=== PATIENT | male | born 1945 | race Caucasian/White ===

== ENCOUNTER 2016-12-24 06:49 | Emergency (ER) | payer OTHER, BC ==
--- NOTE | 2016-12-24 07:11 | PDOC ---
History of Present Illness - General History Source: Patient Exam Limitations: No Limitations - History of Present Illness Initial Comments: 12/24/16 07:49 The patient is a 71 year old male, with a significant past medical history of anxiety, who presents to the emergency department complaining of anxiety for approximately 1 week. The patient reports he was unable to sleep all of last night and was experiencing body shakes. He reports waking up in the middle of the night and walking around his home. He reports taking Xanax and Ambien prescribed by his PCP Dr. Santo, with no relief. Patient reports Dr. Santo recommended a follow-up with a Psychiatric hospital. He states he has been unable to eat, feels dehydrated, and has lost a lot of weight. In the past, he has had similar episodes where he would not be able to sleep, secondary to passing away and increased stress involved in taking care of his son. He reports visiting a psychiatrist in the past, which did not really help him. Currently he does not report any stressors for his anxiety. The patient denies any suicidal or homicidal ideations. The patient denies any fever, chills, cough , headache, or dizziness. The patient denies any nausea, vomiting, diarrhea, constipation, or changes in urination patterns. The patient denies any chest pain, shortness of breath, diaphoresis, or palpitations. Allergies: None reported. Past Surgical History: None reported. Social History: Non-smoker. Denies alcohol or drug use. PCP: Dr. Santo <Sharmila Rodriguez - Last Filed: 12/24/16 07:49> <Angeli Vitale - Last Filed: 12/24/16 10:53> - General Stated Complaint: ANXIETY Time Seen by Provider: 12/24/16 07:07 Past History <Sharmila Rodriguez - Last Filed: 12/24/16 07:49> <Angeli Vitale - Last Filed: 12/24/16 10:53> - Past Medical History Allergies/Adverse Reactions: Allergies Allergy/AdvReac Type Severity Reaction Status Date / Time No Known Allergies Allergy Verified 12/24/16 07:15 Home Medications: Ambulatory Orders Alprazolam [Xanax] 1 mg PO TID PRN 12/24/16 Zolpidem Tartrate [Ambien] 10 mg PO HS 12/24/16 Review of Systems - Review of Systems Able to Perform ROS?: Yes Comments:: 12/24/16 07:51 GENERAL/CONSTITUTIONAL: +Decreased appetite, +weight loss, +unable to sleep, + body shakes. No fever or chills. HEAD, EYES, EARS, NOSE AND THROAT: No change in vision. No ear pain or discharge. No sore throat. CARDIOVASCULAR: No chest pain or shortness of breath. RESPIRATORY: No cough, wheezing, or hemoptysis. GASTROINTESTINAL: No nausea, vomiting, diarrhea or constipation. GENITOURINARY: No dysuria, frequency, or change in urination. MUSCULOSKELETAL: No joint or muscle swelling or pain. No neck or back pain. SKIN: No rash NEUROLOGIC: No headache, vertigo, loss of consciousness, or change in strength/ sensation. ENDOCRINE: No increased thirst. No abnormal weight change. HEMATOLOGIC/LYMPHATIC: No anemia, easy bleeding, or history of blood clots. ALLERGIC/IMMUNOLOGIC: No hives or skin allergy. PSYCHIATRIC: +Stress, +Anxiety. <Sharmila Rodriguez - Last Filed: 12/24/16 07:49> *Physical Exam - Vital Signs Last Vital Signs Temp Pulse Resp BP Pulse Ox 97.8 F 100 H 20 150/97 97 12/24/16 07:15 12/24/16 07:15 12/24/16 07:15 12/24/16 07:15 12/24/16 07:15 - Physical Exam Comments: 12/24/16 07:52 GENERAL: Awake, alert, and fully oriented, in no acute distress. Thin. Appears frail. HEAD: No signs of trauma EYES: PERRLA, EOMI, sclera anicteric, conjunctiva clear ENT: Auricles normal inspection, hearing grossly normal, nares patent, oropharynx clear without exudates. Dry mucosa NECK: Normal ROM, supple, no lymphadenopathy, JVD, or masses LUNGS: Breath sounds equal, clear to auscultation bilaterally. No wheezes, and no crackles HEART: Regular rate and rhythm, normal S1 and S2, no murmurs, rubs or gallops ABDOMEN: Soft, nontender, normoactive bowel sounds. No guarding, no rebound. No masses EXTREMITIES: Normal range of motion, no edema. No clubbing or cyanosis. No cords, erythema, or tenderness NEUROLOGICAL: Cranial nerves II through XII grossly intact. Normal speech, normal gait SKIN: Warm, Dry, normal turgor, no rashes or lesions noted. <Sharmila Rodriguez - Last Filed: 12/24/16 07:49> ED Treatment Course - LABORATORY CBC & Chemistry Diagram: 12/24/16 07:30 12/24/16 07:30 <Sharmila Rodriguez - Last Filed: 12/24/16 07:49> - LABORATORY CBC & Chemistry Diagram: 12/24/16 07:30 12/24/16 07:30 <Angeli Vitale - Last Filed: 12/24/16 10:53> Medical Decision Making - Medical Decision Making 12/24/16 10:51 Pt requesting to go home. He was evaluated by case management, who gave referral for [facility], discussed outpatient facilities. Also set him up for meals on wheels, as he has not been eating properly, does not leave his house much due to anxiety. He is not acutely suicidal or homicidal, does not require acute psychiatric intervention. <Angeli Vitale - Last Filed: 12/24/16 10:53> *DC/Admit/Observation/Transfer - Attestations Scribe Attestion: 12/24/16 07:52 Documentation prepared by Sharmila Rodriguez, acting as medical billing and coding specialist for Angeli Vitale MD. <Sharmila Rodriguez - Last Filed: 12/24/16 07:49> - Discharge Dispostion Admit: No <Angeli Vitale - Last Filed: 12/24/16 10:53> Diagnosis at time of Disposition: Anxiety - Discharge Dispostion Disposition: HOME Condition at time of disposition: Stable - Referrals Referrals: Chad Santo MD [Primary Care Provider] - - Patient Instructions Printed Discharge Instructions: DI for Anxiety -- Adult
[2016-12-24 07:21] VITALS: TEMP 97.8; BMI 20.2
[2016-12-24] MEDS ORDERED: SODIUM CHLORIDE 1,000 ML IV STA (07:30)
[2016-12-24 07:47] LABS: BASOPHIL 0.8 % (0-2.0); EOSINOPHIL 0.9 % (0-4.5); MCH 29.2 pg (25.7-33.7); MCHC 33.7 g/dl (32.0-35.9); MEAN CELL VOLUME 86.6 fl (80-96); MEAN PLT VOLUME 7.3 fl (7.5-11.1); PLATELET COUNT 243 K/MM3 (134-434); RDW 14.2 % (11.9-15.9); WHITE BLOOD COUNT 7.4 K/mm3 (4.0-10.0)
[2016-12-24 08:16] LABS: ALBUMIN 3.8 g/dl (3.4-5.0); ALK PHOS 64 U/L (45-117); ANION GAP 11 (8-16); BILIRUBIN,TOTAL 0.4 mg/dL (0.2-1.0); CALCIUM 9.5 mg/dL (8.5-10.1); CO2 23 mmol/L (21-32); CREATININE 0.5 mg/dL (0.7-1.3); GLUCOSE,RANDOM 122 mg/dL (74-106); PHOSPHOROUS 2.3 mg/dL (2.5-4.9); SGOT/AST 17 U/L (15-37); SGPT/ALT 32 U/L (12-78); TOT PROT 6.9 g/dl (6.4-8.2)
[2016-12-24 08:35] LABS: URINE APPEARANCE TURBID; URINE BILIRUBIN NEGATIVE (NEGATIVE); URINE BLOOD NEGATIVE (NEGATIVE); URINE COLOR YELLOW; URINE GLUCOSE (UA) NEGATIVE (NEGATIVE); URINE KETONE TRACE (NEGATIVE); URINE LEUK ESTERASE NEGATIVE (NEGATIVE); URINE NITRITE NEGATIVE (NEGATIVE); URINE PROTEIN NEGATIVE (NEGATIVE); URINE UROBILINOGEN NEGATIVE E.U./dl (0.2-1.0)
[2016-12-24 08:42] LABS: URINE MARIJUANA THC NEGATIVE ng/ml (CUTOFF=50)
[2016-12-24 09:57] VITALS: BP 152/88; PULSE 98
== END 2016-12-24 11:00 | disposition home or self-care (01) ==
LOC: JER 06:49
PROC: 3E0337Z Introduction of Electrolytic and Water Balance Substance into Peripheral Vein, Percutaneous Approach (ICD-10-PCS; principal; 2016-12-24)
DX: F41.9 Anxiety disorder, unspecified (principal)
CPT/HCPCS: 36415; 80053; 80307; 81003; 83690; 83735; 84100; 85025; 96360; 99284-25

== ENCOUNTER 2016-12-26 02:07 | Emergency (ER) | payer OTHER, BC ==
[2016-12-26 02:36] VITALS: TEMP 98; BMI 20.9
--- NOTE | 2016-12-26 04:38 | PDOC ---
History of Present Illness - General Chief Complaint: Constipation Stated Complaint: CONSTIPATION Time Seen by Provider: 12/26/16 02:37 History Source: Patient Exam Limitations: No Limitations - History of Present Illness Initial Comments: 12/26/16 04:28 Patient is a 71 year old male with h/o anxiety, constipation c/o constipation x > 2 weeks. States was trying to get his bm out tonight and it was stuck but as soon as he got to the ED he went to the bathroom. Denies abd pain, no nausea, no vomiting, fever, chills. Patient states he took lots of water and silium. pmd: Dr. Santo pmhx: as above psochx: neg etoh, drug, cig Famhx: noncontributary GENERAL/CONSTITUTIONAL: [No fever or chills. No weakness. No weight change.] HEAD, EYES, EARS, NOSE AND THROAT: [No change in vision. No ear pain or discharge. No sore throat.] CARDIOVASCULAR: [No chest pain or shortness of breath.] RESPIRATORY: [No cough, wheezing, or hemoptysis.] GASTROINTESTINAL: [No nausea, vomiting, diarrhea (+) constipation. No rectal bleeding.] GENITOURINARY: [No dysuria, frequency, or change in urination.] MUSCULOSKELETAL: [No joint or muscle swelling or pain. No neck or back pain.] SKIN AND BREASTS: [No rash or easy bruising.] NEUROLOGIC: [No headache, vertigo, loss of consciousness, or loss of sensation.] PSYCHIATRIC: [No depression or anxiety.] ENDOCRINE: [No increased thirst. No abnormal weight change.] HEMATOLOGIC/LYMPHATIC: [No anemia, easy bleeding, or history of blood clots.] ALLERGIC/IMMUNOLOGIC: [No hives or skin allergy. No latex allergy.] GENERAL: [The patient is awake, alert, and fully oriented, in no acute distress. ] HEAD: [Normal with no signs of trauma.] EYES: [Pupils equal, round and reactive to light, extraocular movements intact, sclera anicteric, conjunctiva clear.] ENT: [Ears normal, nares patent, oropharynx clear without exudates. Moist mucous membranes.] NECK: [Normal range of motion, supple without lymphadenopathy, JVD, or masses.] LUNGS: [Breath sounds equal, clear to auscultation bilaterally. No wheezes, and no crackles.] HEART: [Regular rate and rhythm, normal S1 and S2 without murmur, rub.] ABDOMEN: [Soft, nontender, normoactive bowel sounds. No guarding, no rebound. No masses.] EXTREMITIES: [Normal range of motion, no edema. No clubbing or cyanosis. No cords, erythema, or tenderness.] NEUROLOGICAL: [Cranial nerves II through XII grossly intact. Normal speech, normal gait.] PSYCH: [Normal mood, normal affect.] SKIN: [Warm, Dry, normal turgor, no rashes or lesions noted.] Past History - Past Medical History Allergies/Adverse Reactions: Allergies Allergy/AdvReac Type Severity Reaction Status Date / Time No Known Allergies Allergy Verified 12/26/16 02:12 Home Medications: Ambulatory Orders Alprazolam [Xanax] 1 mg PO TID PRN 12/24/16 Zolpidem Tartrate [Ambien] 10 mg PO HS 12/24/16 Bisacodyl Suppository [Dulcolax Suppository -] 10 mg RC DAILY #7 supp.rect 12/26 Docusate Sodium [Colace -] 100 mg PO TID #21 capsule 12/26/16 Psychiatric Problems: Yes (Anxiety) - Psycho/Social/Smoking Cessation Hx Suicidal Ideation: No Smoking History: Never smoked Hx Alcohol Use: No Drug/Substance Use Hx: No Substance Use Type: None *Physical Exam - Vital Signs Last Vital Signs Temp Pulse Resp BP Pulse Ox 98 F 114 H 22 125/80 98 12/26/16 02:12 12/26/16 02:12 12/26/16 02:12 12/26/16 02:12 12/26/16 02:12 Medical Decision Making - Medical Decision Making 12/26/16 04:38 Patient is a 71 year old male with h/o anxiety, constipation c/o constipation x > 2 weeks has a BM in the ED and is now better no need for any intervention. 12/26/16 05:43 pulse 100 I discussed the physical exam findings, ancillary test results and final diagnoses with the patient. I answered all of the patient's questions. The patient was satisfied with the care received and felt comfortable with the discharge plan and treatment plan. The Patient agrees to follow up with the primary care physician within 24-72 hours *DC/Admit/Observation/Transfer Diagnosis at time of Disposition: Constipation Qualifiers: Constipation type: unspecified constipation type Qualified Code(s): K59.00 - Constipation, unspecified - Discharge Dispostion Disposition: HOME Condition at time of disposition: Stable - Prescriptions Prescriptions: Docusate Sodium [Colace -] 100 mg PO TID #21 capsule Bisacodyl Suppository [Dulcolax Suppository -] 10 mg RC DAILY #7 supp.rect - Referrals Referrals: Sebastián Rene MD [Staff Physician] - - Patient Instructions Printed Discharge Instructions: DI for Constipation, Increased Dietary Fiber May Improve Constipation Conditions With Pelvic Mil Additional Instructions: Your Discharge Instructions: You must call primary care physician within 24 hours to arrange follow-up. Return to the Emergency Department with any new, persistent or worsening symptoms, for fever, chills, SOB, dizziness or any other concerning changes that may occur.
[2016-12-26 08:17] VITALS: BP 119/68; PULSE 88
--- NOTE | 2016-12-26 08:24 | PDOC ---
*Physical Exam - Vital Signs Last Vital Signs Temp Pulse Resp BP Pulse Ox 98 F 88 18 119/68 99 12/26/16 02:12 12/26/16 08:10 12/26/16 08:10 12/26/16 08:10 12/26/16 08:10 - Physical Exam General Appearance: Yes: Appropriately Dressed. No: Apparent Distress HEENT: positive: Normal Voice Neck: positive: Supple Respiratory/Chest: positive: Lungs Clear, Normal Breath Sounds. negative: Respiratory Distress Cardiovascular: positive: Regular Rate, S1, S2 Gastrointestinal/Abdominal: positive: Soft. negative: Tender Integumentary: positive: Dry, Warm Neurologic: positive: Fully Oriented, Alert, Normal Mood/Affect Medical Decision Making - Medical Decision Making 12/26/16 08:22 Pt signed out to me at 7am &1 yo M, h/o anxiety, p/w constipation but had a BM without any intervention in ED as per prior team. Pt requesting SW in ED as has difficulty w/ meals at home 12/26/16 08:30 On re-evaluation, pt states he has a difficult time getting out doors to be able to accomplish his ADLs, such as food shopping, etc. Pt attributes this to ? his anxiety but states he stopped taking all his meds because he does not feel like they were working. Patient does have a son, but unclear if son helps. Patient otherwise has no home assistance. On chart review, patient was seen in ED several days ago for same issue and was evaluated by therapeutic case manager. As per documentation, patient was referred to [facility], outpatient follow-up. Meals on Wheels was also set up for patient. When I went to patient's room to discuss this with the patient was told by ED nurse that patient eloped from ED with another individual who arrived to pick pt up *DC/Admit/Observation/Transfer Diagnosis at time of Disposition: Constipation Qualifiers: Constipation type: unspecified constipation type Qualified Code(s): K59.00 - Constipation, unspecified - Discharge Dispostion Disposition: ELOPED Condition at time of disposition: Stable - Prescriptions Prescriptions: Docusate Sodium [Colace -] 100 mg PO TID #21 capsule Bisacodyl Suppository [Dulcolax Suppository -] 10 mg RC DAILY #7 supp.rect - Referrals Referrals: Sebastián Rene MD [Staff Physician] - - Patient Instructions Printed Discharge Instructions: Increased Dietary Fiber May Improve Constipation Conditions With Pelvic Mil, DI for Constipation Additional Instructions: Your Discharge Instructions: You must call primary care physician within 24 hours to arrange follow-up. Return to the Emergency Department with any new, persistent or worsening symptoms, for fever, chills, SOB, dizziness or any other concerning changes that may occur. - Post Discharge Activity
== END 2016-12-26 08:10 | disposition home or self-care (01) ==
LOC: JER 02:07
DX: K59.00 Constipation, unspecified (principal); F41.9 Anxiety disorder, unspecified
CPT/HCPCS: 99282-25